=== PATIENT | male | born 1945 | race Caucasian/White ===

== ENCOUNTER 2017-07-13 07:24 | Outpatient (CLI) | payer MEDICARE ==
[2017-07-13 08:00] LABS: Anion Gap 12 mmol/L (10-20); BUN (Urea Nitrogen) 15 mg/dL (8.4-25.7); Calc. Creatinine Clearance 0 mL/min (70-130); Calcium 9.1 mg/dL (7.8-10.44); Carbon Dioxide 29 mmol/L (23-31); Chloride 106 mmol/L (98-107); Estimated GFR-MDRD 89; Glucose 102 mg/dL (80-115); Potassium 4.5 mmol/L (3.5-5.1); Sodium 142 mmol/L (136-145)
[2017-07-13] MEDS ORDERED: Iopamidol 370 76% 100 ML VIAL ONE (09:00)
--- NOTE | 2017-07-13 12:15 | CT ---
CT OF THE ABDOMEN AND PELVIS WITH AND WITHOUT CONTRAST: Date: 07-13-17 Comparison: CT abdomen and pelvis performed at [facility], 10-22-14. History: Bladder stones, nephrolithiasis, prostate enlargement, hematuria. Technique: Serial axial CT imaging is obtained at 5 mm intervals from lung bases through pubic symphy sis with and without contrast using a CT urogram protocol. Coronal reformatted imaging of the urograp hic phase provided. FINDINGS: The imaged lung bases appear unremarkable. No free intraperitoneal air or fluid is seen. There is a tiny hypodensity in the right lobe of the liver, unchanged since 2015. The spleen, gallbla dder and adrenal glands are unremarkable. The pancreas is mildly atrophic, stable. There is a subtle area of hypodensity along the course of the horizontal portion of the duodenum on I mage 28, which appears stable when compared to the 2015 exam. This measures in the 7-8 mm range and m ay represent a small nonspecific cyst. The prior examination demonstrated a nosophytic hyperdense lesion emanating from the lower pole of th e right kidney, no longer present. There are small hypodense lesions within both kidneys suggesting s mall cysts. There is no evidence for hydronephrosis or obstructive uropathy on either side. There is no nephrolithiasis seen on either side. There is no stone seen along the course of either ureter. The prostate gland is heterogeneous and enlarged, measuring at least 5.5 cm in AP dimension, 5.8 cm i n transverse dimension, and 5.4 cm in craniocaudal dimension, herniating into the region of the urina ry bladder base. The prostate gland demonstrates a fairly unchanged appearance when compared to the p rior exam. There are multiple calcifications noted within the posterior aspect of the urinary bladder, three to the left of midline and two to the right of midline. On the prior examination there was only such frank cification seen. The largest stone is noted posteriorly on the left measuring 7 mm, previously measur ing approximately 4-5 mm. No bowel inflammatory change or evidence of bowel obstruction. There is a small area of soft tissue d ensity in bilateral inguinal regions proximal to the inguinal canal suggesting prior hernia repair. No lymphadenopathy is seen in the abdomen/pelvis. Scattered atherosclerotic calcification of the abdo june aorta and its branches noted. The osseous structures demonstrate a stable sclerotic lesion with in the iliac bone on the right. There is lower lumbar spine degenerative change. Urographic phase imaging demonstrates no evidence for a filling defect within the renal collecting sy stem/ureter on either side. IMPRESSION: 1. Urinary bladder calculi, increased in number and size when compared to the prior imaging. 2. No evidence for obstructive uropathy or solid renal mass. 3. Enlarged prostate gland. 4. Numerous additional incidental findings as described above. POS: [facility]
== END 2017-07-13 07:25 | disposition home or self-care (01) ==
LOC: SCSCT 07:24
PROVIDERS: ATTEND Urology
DX: N40.1 Benign prostatic hyperplasia with lower urinary tract symptoms (principal); R33.9 Retention of urine, unspecified; N21.0 Calculus in bladder; Z87.442 Personal history of urinary calculi; Z87.448 Personal history of other diseases of urinary system
CPT/HCPCS: 36415; 74178; 80048

== ENCOUNTER 2018-11-08 09:45 | Outpatient (CLI) | payer MEDICARE ==
[2018-11-08 10:29] LABS: Bilirubin Negative (Negative); Blood, Urine Negative (Negative); Glucose, Urine (Dipstick) Negative (Negative); Leukocyte Negative (Negative); Nitrite Negative (Negative); Protein, Urine (Dipstick) Negative (Neg-Trace); Urobilinogen 0.2 mg/dL (0.2-1.0); pH, Urine 6.5 (5.0-9.0)
[2018-11-08 10:38] LABS: Clarity Slightly Cloudy (Clear)
[2018-11-08 10:39] LABS: Bacteria/HPF None Seen HPF (None Seen); RBC/HPF 0-3 HPF (0-3); Squamous Epithelial 0-3 HPF (0-3); Urine Culture Reflex No No; WBC/HPF 0-3 HPF (0-3)
[2018-11-08 10:57] LABS: Anion Gap 11 mmol/L (10-20); BUN (Urea Nitrogen) 15 mg/dL (8.4-25.7); Calc. Creatinine Clearance 0 mL/min (70-130); Calcium 9.3 mg/dL (7.8-10.44); Carbon Dioxide 29 mmol/L (23-31); Chloride 103 mmol/L (98-107); Estimated GFR-MDRD Greater than 90; Glucose 93 mg/dL (83-110); Potassium 3.9 mmol/L (3.5-5.1); Sodium 139 mmol/L (136-145)
--- NOTE | 2018-11-08 11:59 | RAD ---
SUPINE ABDOMEN: History: History of bladder stone. Comparison: CT from 2015 demonstrated 4-5 mm calculus in the bladder. FINDINGS: Bowel gas pattern is unremarkable. There is prominent stool in the colon obscuring the renal outlines . There are five or six rounded calcifications overlying the sacrum measuring up to 8 mm. These cannot be further localize and could potentially reside in the bladder. Consider CT scan for further evaluat ion. POS: OFF
--- NOTE | 2018-11-08 12:18 | CT ---
CT ABDOMEN AND PELVIS WITHOUT IV CONTRAST: Technique: Multiple axial tomograms were obtained through the abdomen and pelvis without IV enhanceme nt. Indications: Prostatic hypertrophy. Difficulty voiding. Comparison: CT abdomen/pelvis 07-13-17. FINDINGS: Small hepatic cyst in the right lobe of the liver measuring approximately 8 mm is stable. Liver, sple en, and pancreas otherwise unremarkable and unchanged. Adrenal glands normal. Review of the urinary tract shows no evidence of hydronephrosis. The ureters are normal caliber. There is a low density cystic lesion in the superior pole of the right kidney measuring 1.6 cm which appears stable. There is a 1.4 cm cystic lesion lower left kidney which is stable. There is a faint cortical calcification seen in the superior right renal cortex today which was not p resent previously. The urinary bladder is distended. There is a grouping of numerous small calcifications in the floor o f the bladder. These are best delineated on coronal images. At least 7 of these small calcifications are seen on coronal with the largest measuring approximately 8 mm. Prostatic hypotrophy again noted, not significantly changed in size or appearance when compared to e prior exam. The aorta shows calcification but normal caliber. The bowel loops are unremarkable. No evidence of adenopathy. IMPRESSION: 1. Numerous bladder calculi are seen as described above. The bladder is distended. Prostatic hypertro phy again noted. 2. No hydronephrosis. No ureteral calculus. 3. Bilateral renal cystic lesions are again seen which appear stable as described. 4. Faint calcification in the cortex of the upper pole right kidney is seen today. POS: OFF
--- NOTE | 2018-11-08 12:34 | ULT ---
BILATERAL RENAL ULTRASOUND COMPLETE: History: Benign prostatic hypertrophy. Screening PSA. History of bladder stone. FINDINGS: The right kidney measures 10.9 x 6.8 x 6.4 cm and contains a 1.0 x 1.3 cm cortical cyst. Left kidney measures 10 x 5.1 x 5.1 cm. No significant renal hydronephrosis. Two stones are noted wit hin the bladder. The bladder did not empty completely with a post void residual of 38 cc. IMPRESSION: Small right renal cyst. Two bladder calculi. Incomplete emptying of the bladder on post void imaging. POS: [facility]
== END 2018-11-08 09:46 | disposition home or self-care (01) ==
LOC: SCSULT 09:45
PROVIDERS: ATTEND Urology
DX: Z12.5 Encounter for screening for malignant neoplasm of prostate (principal); N40.1 Benign prostatic hyperplasia with lower urinary tract symptoms; N21.0 Calculus in bladder; R33.8 Other retention of urine; N32.89 Other specified disorders of bladder; N28.1 Cyst of kidney, acquired; N28.89 Other specified disorders of kidney and ureter; Z87.448 Personal history of other diseases of urinary system; Z87.898 Personal history of other specified conditions
CPT/HCPCS: 36415; 74018; 74176; 76770; 80048; 81001

== ENCOUNTER 2019-01-27 12:19 | Outpatient (CLI) | payer MEDICARE ==
[2019-01-27 13:24] LABS: Hemoglobin 13.5 g/dL (14.0-18.0); Mean Corpuscular HGB CONC 35.3 g/dL (32.0-36.0); Mean Corpuscular Hemoglobin 32.2 pg (27.0-31.0); Mean Platelet Volume 6.4 fL (7.4-10.4); Platelet Count 224 thou/uL (130-400); RBC Distribution Width 13.1 % (11.5-14.5); Red Blood Cell (RBC) Count 4.19 mill/uL (4.70-6.10); White Blood Cell (WBC) Count 6.1 thou/uL (4.8-10.8)
[2019-01-27 13:35] LABS: PTT 30.3 SEC (22.9-36.1); Prothrombin Time 13.4 SEC (12.0-14.7)
[2019-01-27 13:47] LABS: Anion Gap 13 mmol/L (10-20); BUN (Urea Nitrogen) 16 mg/dL (8.4-25.7); Calc. Creatinine Clearance 0 mL/min (70-130); Calcium 9.3 mg/dL (7.8-10.44); Carbon Dioxide 28 mmol/L (23-31); Chloride 103 mmol/L (98-107); Estimated GFR-MDRD Greater than 90; Glucose 103 mg/dL (83-110); Potassium 4.3 mmol/L (3.5-5.1); Sodium 140 mmol/L (136-145)
[2019-01-27 13:48] LABS: Bacteria/HPF None Seen HPF (None Seen); Bilirubin Negative (Negative); Blood, Urine Negative (Negative); Clarity Clear (Clear); Glucose, Urine (Dipstick) Normal (Negative); Leukocyte Negative Leu/uL (Negative); Nitrite Negative (Negative); Protein, Urine (Dipstick) Negative (Neg-Trace); RBC/HPF 0-3 HPF (0-3); Squamous Epithelial None Seen HPF (0-3); WBC/HPF 0-3 HPF (0-3)
--- NOTE | 2019-01-27 16:32 | EKG ---
Test Reason : Blood Pressure : / mmHG Vent. Rate : 059 BPM Atrial Rate : 059 BPM P-R Int : 178 ms QRS Dur : 090 ms QT Int : 414 ms P-R-T Axes : 047 068 066 degrees QTc Int : 409 ms Sinus bradycardia Otherwise normal ECG No previous ECGs available Confirmed by BILLY FUENTES, DR. Bundy ([id number]) on 01/27/2019 4:32:23 PM Referred By: MAC Confirmed By:DR. Gregor CERVANTES MD
== END 2019-01-27 12:20 | disposition home or self-care (01) ==
LOC: LABBT 12:19
PROVIDERS: ATTEND Urology
DX: Z01.818 Encounter for other preprocedural examination (principal); N40.1 Benign prostatic hyperplasia with lower urinary tract symptoms; N21.0 Calculus in bladder
CPT/HCPCS: 80048; 81001; 85027; 85610; 85730; 87086; 93005; 93010

== ENCOUNTER 2019-02-08 05:31 | Observation (INO) | payer MEDICARE ==
[2019-01-27 13:05] VITALS: BMI 25.7
[2019-02-08] MEDS ORDERED: Levofloxacin 500 mg/D5W 100 ml Premix Bag ONE (06:50)
[2019-02-08] MEDS ORDERED: Famotidine/PF 20 mg/2ml Vial ONE (07:03)
[2019-02-08] MEDS ORDERED: Scopolamine 1.5 mg/72 hour Patch ONE (07:03)
[2019-02-08] MEDS ORDERED: Fentanyl 100 MCG/2 ML VIAL ONE ×2 (07:09→09:59)
[2019-02-08] MEDS ORDERED: Iothalamate Meglumine 60% 50 ML VIAL FS ONE (07:25)
[2019-02-08] MEDS ORDERED: Promethazine HCl 25 MG/ML VIAL IM PRN (08:54)
[2019-02-08] MEDS ORDERED: Meperidine HCl/PF 25 MG/ML VIAL SLOW IVP PRN (08:54)
[2019-02-08] MEDS ORDERED: PACU-Morphine 4MG/ML VIAL SLOW IVP PRN (08:54)
[2019-02-08] MEDS ORDERED: Promethazine HCl 25 MG/ML VIAL SLOW IVP PRN (08:54)
[2019-02-08] MEDS ORDERED: Morphine 4 MG/ML VIAL SLOW IVP PRN (10:58)
[2019-02-08] MEDS ORDERED: Promethazine 25 MG TAB PO PRN (10:58)
[2019-02-08] MEDS ORDERED: Mag-Al 1200 mg/1200 mg/30 ML UDCUP PO PRN (10:58)
[2019-02-08] MEDS ORDERED: diphenhydrAMINE 50 MG/ML VIAL IVP PRN (10:58)
[2019-02-08] MEDS ORDERED: HYDROcodone/Acetaminophen 5/325 mg Tablet PO PRN ×2 (10:58)
[2019-02-08] MEDS ORDERED: Zolpidem Tartrate 5 MG TAB PO PRN (10:58)
[2019-02-08] MEDS ORDERED: hydrALAZINE 20 MG/ML VIAL SLOW IVP PRN ×2 (10:58)
[2019-02-08] MEDS ORDERED: Ondansetron PF 4 MG/2 ML Vial IVP PRN (10:58)
[2019-02-08] MEDS ORDERED: Oxybutynin 5 MG TAB PO PRN (10:58)
[2019-02-08] MEDS ORDERED: Acetaminophen 500 MG TAB PO PRN (10:58)
[2019-02-08 11:43] LABS: #Lymphocytes 0.9 thou/uL (1.20-3.40); #Monocytes 0.1 thou/uL (0.11-0.59); #Neutrophils 9.2 thou/uL (1.40-6.50); %Basophils 0.2 % (0.0-1.0); %Eosinophils 0.2 % (0.0-10.0); %Monocytes 0.8 % (0.0-10.0); %Neutrophils 89.8 % (42.0-75.0); Hemoglobin 13.4 g/dL (14.0-18.0); Mean Corpuscular HGB CONC 35.9 g/dL (32.0-36.0); Mean Corpuscular Hemoglobin 32.1 pg (27.0-31.0); Mean Corpuscular Volume 89.2 fL (78.0-98.0); Mean Platelet Volume 6.1 fL (7.4-10.4); Platelet Count 223 thou/uL (130-400); RBC Distribution Width 13.1 % (11.5-14.5); Red Blood Cell (RBC) Count 4.17 mill/uL (4.70-6.10); White Blood Cell (WBC) Count 10.2 thou/uL (4.8-10.8)
[2019-02-08] MEDS ORDERED: PROPOFOL 200 MG/20 ML VIAL ONE (11:58)
[2019-02-08] MEDS ORDERED: Metoclopramide HCl 10 MG/2 ML VIAL ONE (11:58)
[2019-02-08] MEDS ORDERED: Ondansetron PF 4 MG/2 ML Vial ONE (11:58)
[2019-02-08] MEDS ORDERED: Dexamethasone 20 MG/5 ML VIAL ONE (11:58)
[2019-02-08] MEDS ORDERED: Rocuronium Bromide 10 MG/ML (10ML VIAL) ONE (11:58)
[2019-02-08] MEDS ORDERED: Glycopyrrolate 0.2 MG/ML 5 ML SYRINGE ONE (11:58)
[2019-02-08] MEDS ORDERED: Lidocaine 1% PF 5 ML VIAL ONE (11:58)
[2019-02-08] MEDS ORDERED: ePHEDrine 50 MG/ML VIAL ONE (11:58)
[2019-02-08 12:09] LABS: Anion Gap 11 mmol/L (10-20); BUN (Urea Nitrogen) 13 mg/dL (8.4-25.7); Calc. Creatinine Clearance 88 mL/min (70-130); Calcium 8.5 mg/dL (7.8-10.44); Carbon Dioxide 25 mmol/L (23-31); Chloride 105 mmol/L (98-107); Estimated GFR-MDRD 89; Glucose 124 mg/dL (83-110); Potassium 4.1 mmol/L (3.5-5.1); Sodium 137 mmol/L (136-145)
[2019-02-08] MEDS: Sodium Chloride 0.9% 1,000 ML IV SCH ×2 (12:40→20:20)
[2019-02-08] MEDS: cefOXitin 1.5 GM in Sodium Chloride 0.9% 100 ML IVPB SCH ×2 (14:11→20:20)
--- NOTE | 2019-02-08 14:59 | OP ---
DATE OF PROCEDURE: 02/08/2019 PRIMARY CARE PHYSICIAN: Guillermo Sanchez MD PREOPERATIVE DIAGNOSES: 1. A 73-year-old male with history of benign prostatic hyperplasia. 2. Multiple bladder stones, approximately 7 in the bladder. Total dimensions about 1.7-2 cm. POSTOPERATIVE DIAGNOSES: 1. A 73-year-old male with history of benign prostatic hyperplasia. 2. Multiple bladder stones, approximately 7 in the bladder. PROCEDURES PERFORMED: Cystoscopy, laser lithotripsy of bladder stones, transurethral resection of prostate. ANESTHESIA: General. DISPOSITION: To recovery room in stable condition. SPECIMENS: 1. Fragment of stone for chemical analysis. 2. TUR prostate and bladder for stone fragments. ESTIMATED BLOOD LOSS: 150 to 200 mL. IV FLUIDS: 1500 mL. COMPLICATIONS: None apparent. DRAINS: 22-Hungarian 30 mL urethral Campos catheter three-way on continuous bladder irrigation. INDICATIONS FOR PROCEDURE AND HISTORY: Mr. Fallon is a 73-year-old male with history of BPH, known history of obstructive urinary symptoms and multiple bladder stones. He underwent workup with cystoscopy demonstrating severely obstructing prostate with multiple bladder stones, and his prostate volume is 92 g. He presents today for staged TURP, laser lithotripsy, and evacuation of bladder stones. Given the multitude of bladder stones and large prostate volume, he has been fully informed that he will most likely require staged TURP. Risks and complications including , but not limited to, bleeding, pain, infection, injury to adjacent organs, ureteral injury, bladder perforation, stricture formation, incontinence of stress and urge, PE, DVT, perioperative morbidity and mortality was reviewed with him in detail and he desired to proceed. DESCRIPTION OF PROCEDURE: After an informed consent was signed, the patient was taken to the operating room, placed in a dorsal lithotomy position with the genital area prepped and draped in the usual surgical sterile fashion. Broad-spectrum antibiotics were provided. A 21-Hungarian cystoscope was utilized to stage his prostatic urethra, which demonstrated a severely obstructing prostatic urethra with mass effect on the trigone. His ureteral orifices were identified about 3 to 4 mm proximal to the bladder neck. There were multiple bladder stones consistent with the CT scan. Multiple cellule formation with no obvious large bladder diverticulum. He does have a history of chronic incomplete void. We then transitioned to 500 micron laser switching back and forth with ball-tip. We laser lithotripsied the multiple bladder stones into smaller fragments. We fragmented as much as we could, however, due to oozing from the prostate visualization became subpar. I did laser lithotripsy most of the stone debris and felt what was left could be evacuated with Ellik with the prostate chips. We transitioned to a 26-Hungarian continuous resectoscope sheath with a visual obturator. We passed the scope into the level of the bladder. Using Gyrus bipolar, we performed a transurethral resection of prostate in a classic Stefano fashion. However, given the significant enlarged prostate volume, in addition a significant increase in length of the urethra, his prostate had to be resected in quadrants of four. We approached this systematically taking the left lateral lobe down. We did make significant progress in performing a wide channel for his TUR. Given the elapsed time treating the bladder stone and large prostate volume, as we did make progress, procedure was terminated. We evacuated all prostatic chips to the Sultana evacuator and there was a small stone nidus, which was grabbed with a Nitinol basket using a laser bridge through the resectoscope. A 2nd look in the bladder demonstrated no evidence of residual stone, chips in the bladder itself. The UOs were identified from the margin of resection well away with clear efflux of urine. We staged the prostatic urethra and good hemostasis was obtained. His apical lobes extended beyond the verumontanum. We did not aggressively resect the apical lobes. However, we did resect the component that was obstructing. Most of his obstructing component from the anterior lateral lobes were taken down. He does have residual prostatic adenoma on the floor of the bladder. However, he did have a wide bladder neck at the end of the procedure, given the elapsed time. Procedure was terminated at this time. A 22-Hungarian three-way Campos catheter was passed into the bladder. There was minimal hang up at the bladder neck, however, passed atraumatically to the level of the bladder. A 30 mL insufflated and continuous bladder irrigation was initiated, which demonstrated clear output to pink. He tolerated the procedure well and transported to the recovery room in stable condition. We will admit with continuous bladder irrigation and observe. Job ID: [id number] [facility]
[2019-02-08] MEDS: Docusate 100 MG CAP PO SCH (20:20)
[2019-02-08] MEDS: Famotidine/PF 20 mg/2ml Vial SLOW IVP SCH (20:20)
[2019-02-08] MEDS ORDERED: Tamsulosin HCl 0.4 MG CAP PO SCH (21:00)
[2019-02-08] MEDS ORDERED: Dutasteride 0.5 MG CAP PO SCH (21:00)
[2019-02-09] MEDS: cefOXitin 1.5 GM in Sodium Chloride 0.9% 100 ML IVPB SCH ×2 (05:45→14:17)
[2019-02-09 06:17] LABS: #Lymphocytes 1.7 thou/uL (1.20-3.40); #Monocytes 0.8 thou/uL (0.11-0.59); #Neutrophils 8.7 thou/uL (1.40-6.50); %Basophils 0.1 % (0.0-1.0); %Eosinophils 0.2 % (0.0-10.0); %Monocytes 6.9 % (0.0-10.0); %Neutrophils 77.8 % (42.0-75.0); Hemoglobin 12.2 g/dL (14.0-18.0); Mean Corpuscular HGB CONC 34.9 g/dL (32.0-36.0); Mean Corpuscular Hemoglobin 31.8 pg (27.0-31.0); Mean Corpuscular Volume 91.1 fL (78.0-98.0); Mean Platelet Volume 6.4 fL (7.4-10.4); Platelet Count 208 thou/uL (130-400); RBC Distribution Width 13.1 % (11.5-14.5); Red Blood Cell (RBC) Count 3.85 mill/uL (4.70-6.10); White Blood Cell (WBC) Count 11.2 thou/uL (4.8-10.8)
[2019-02-09 06:35] LABS: Anion Gap 11 mmol/L (10-20); BUN (Urea Nitrogen) 13 mg/dL (8.4-25.7); Calc. Creatinine Clearance 85 mL/min (70-130); Calcium 8.6 mg/dL (7.8-10.44); Carbon Dioxide 26 mmol/L (23-31); Chloride 107 mmol/L (98-107); Estimated GFR-MDRD 85; Glucose 100 mg/dL (83-110); Potassium 3.9 mmol/L (3.5-5.1); Sodium 140 mmol/L (136-145)
[2019-02-09] MEDS: Sodium Chloride 0.9% 1,000 ML IV SCH (07:00)
--- NOTE | 2019-02-09 08:17 | PRG ---
DATE OF SERVICE: 02/09/2019 SUBJECTIVE: The patient feels well. Denies nausea, vomiting, or fever. OBJECTIVE: VITAL SIGNS: Stable. He is afebrile. ABDOMEN: Soft, nontender, nondistended. CBI was never stopped per my request as there was concern regarding hematuria. However, upon further discussing with nursing staff, it was pink, light red tinge. Urine drip currently CBI at a lower rate demonstrating clear output. Therefore , CBI was held on morning rounds. PERTINENT LABORATORY DATA: White count 11, hemoglobin 12.2, platelets 208. BMP profile is within normal limits. Pathology pending. IMPRESSION AND PLAN: Mr. Fallon is a 73-year-old male with history of significantly enlarged prostate volume, multiple bladder stones. Postoperative day #1, status post laser lithotripsy of bladder stone, transurethral resection of the prostate. We will hold CBI, monitor for degree of hematuria. If it is relatively stable, we will discontinue Campos for a voiding trial. If significant hematuria, we will continue his CBI and reassess this afternoon. The patient is surgically stable. Job ID: [id number] [facility]
[2019-02-09] MEDS ORDERED: Amlodipine 5 MG TAB PO SCH (09:00)
[2019-02-09] MEDS ORDERED: Tamsulosin HCl 0.4 MG CAP PO SCH (09:00)
[2019-02-09] MEDS ORDERED: Lisinopril/Hydrochlorothiazide 20 mg/12.5 mg Tablet PO SCH (09:00)
[2019-02-09] MEDS: Docusate 100 MG CAP PO SCH (09:23)
[2019-02-09] MEDS: Famotidine/PF 20 mg/2ml Vial SLOW IVP SCH (12:50)
[2019-02-09] MEDS ORDERED: Phenazopyridine HCl 97.5 MG TABLET PO PRN (14:36)
[2019-02-09] MEDS ORDERED: Bisacodyl 10 MG SUPP PR SCH (14:45)
[2019-02-09 16:53] VITALS: BP 146/84; TEMP 98.9
--- NOTE | 2019-02-09 18:09 | DIS ---
DATE OF ADMISSION: 02/08/2019 DATE OF DISCHARGE: 02/09/2019 DISPOSITION: To home with good family assist. CONDITION: Stable. DISCHARGE MEDICATIONS: 1. Ciprofloxacin one p.o. b.i.d. for 8 days. 2. Colace 100 mg one p.o. b.i.d. p.r.n. The patient is to continue his home medications, however, no aspirin and ibuprofen products advised. FOLLOWUP: followup appointment on February 16 at 8:30 a.m. for voiding trial. BRIEF HOSPITAL COURSE: Mr. Fallon is a pleasant 73-year-old male with history of significantly enlarged prostate. He desired to defer surgery to do social events with his family. He has had multiple bladder stones. He underwent cysto, laser lithotripsy of multiple bladder stones, staged TURP. He has significantly enlarged prostate volume and has been fully informed that he will require staged intervention. He has a baseline history of incomplete void, he did undergo a voiding trial this morning as his CBI was held with ismael pink-tinged urine. He has voided in small increments of 100 to 200 mL, however due to bladder scan demonstrating 400 mL, I did replace an 18-Bulgarian coude Campos catheter, which passed without difficulty. He has been doing well, with Campos catheter placement and has been passing urine through the Campos, which is ismael, tea colored. Informed the patient that we will allow bladder rest, as we did spend significant amount of time in laser lithotripsing his bladder stone, and performing the staged TURP. We will allow bladder rest for repeat voiding trial next . He is to continue his BPH medications for now. Instructions to call me if significant blood per Campos catheter, fever, pelvic pain, clot per his Campos catheter. Job ID: [id number] [facility]
[2019-02-14 07:14] LABS: CA Oxalate Monohydrate 85 % (.); CA Phosphate 15 % (.); Color Brown (.); Stone Size 6x6x3 mm (.); Stone Weight 111.2 mg (.)
== END 2019-02-09 17:45 | disposition home or self-care (01) ==
LOC: SDC 05:31 → SURG A 10:58
PROVIDERS: ADMIT Urology; ATTEND Urology
PROC: 0TCB8ZZ Extirpation of Matter from Bladder, Via Natural or Artificial Opening Endoscopic (ICD-10-PCS; principal; 2019-02-08)
PROC: 0VT08ZZ Resection of Prostate, Via Natural or Artificial Opening Endoscopic (ICD-10-PCS; 2019-02-08)
PROC: 0TJB8ZZ Inspection of Bladder, Via Natural or Artificial Opening Endoscopic (ICD-10-PCS; 2019-02-08)
DX: N21.0 Calculus in bladder (principal); N40.1 Benign prostatic hyperplasia with lower urinary tract symptoms; R35.1 Nocturia; R39.14 Feeling of incomplete bladder emptying; I35.0 Nonrheumatic aortic (valve) stenosis; Z79.82 Long term (current) use of aspirin; Z79.899 Other long term (current) drug therapy; Z87.442 Personal history of urinary calculi; Z87.891 Personal history of nicotine dependence
CPT/HCPCS: 52317; 52601; 80048 ×2; 82365; 85025 ×2; 86850; 86900; 86901; 88300; 88305; 96361 ×2; 96365; 96366 ×2; 96375; C1758; C1769; G0378 ×2; 36415; J0131; J0694; J1100; J1956; J2001; J2405; J2704; J2765; J3010; J3490; S0028